=== PATIENT | male | born 1975 | race Caucasian/White ===

== ENCOUNTER 2019-04-21 08:08 | Inpatient (IN) | payer OTHER ==
--- NOTE | 2019-04-21 09:14 | HP ---
CIWA Score Nausea/Vomitin-No Nausea/No Vomiting Muscle Tremors: 3 (patient was here for admission here yesterday so symptoms of withdrawal are less.) Anxiety: 2 Agitation: 3 Paroxysmal Sweats: No Perspiration Orientation: 0-Oriented Tacttile Disturbances: 1-Very Mild Itch/Numbness Auditory Disturbances: 0-None Visual Disturbances: 1-Very Mild Sensitivity (patient was here for admission yesterday but there were no beds. Symptoms of withdrawal are much less now than yesterday) Headache: 3-Moderate CIWA-Ar Total Score: 13 - Admission Criteria OASAS Guidelines: Admission for Medically Managed Detox: Requires at least one of the followin. CIWA greater than 12 2. Seizures within the past 24 hours 3. Delirium tremens within the past 24 hours 4. Hallucinations within the past 24 hours 5. Acute intervention needed for co occurring medical disorder 6. Acute intervention needed for co occurring psychiatric disorder 7. Severe withdrawal that cannot be handled at a lower level of care (continued vomiting, continued diarrhea, abnormal vital signs) requiring intravenous medication and/or fluids Admission ROS [facility] Chief Complaint: Patient wants to be admitted because he is sick and tired of being addicted. He has lost family and friends. "I don't want to keep falling off the wagon." Allergies/Adverse Reactions: Allergies Allergy/AdvReac Type Severity Reaction Status Date / Time No Known Allergies Allergy Verified 04/21/19 08:17 History of Present Illness: 44 year old male with alcohol and cocaine dependence for 20 years. Last detox was in 2007 in [facility] and completed detox and rehab. He is using 3 t packs of beer per day but last drink 2 days ago. He is using $40-80 of cocain per day intranasally. He has never been in a MAT in the past. He has never used heroin or other opioids. He denies use of any benzodiazpines or other oral opioids or other pill. He smokes about 10 ciggs/day since the age of [age] years old. Marijuana he occasionally uses about 1x/month. He has no significant prior medical history. However, his family history is significant for Hypertension, Asthma and diabetes on his father. Mother has diabetes. No prior surgical history . He is currently undomiciled but not in long-term system. He has has some legal issues of cowart larceny in the past but no current legal issues. He graduated high school but did not complete college. He has no PMD. He has no psychiatric history but family history on father's side of bipolar and schizophrenia. - Ebola screening Have you traveled outside of the country in the last 21 days: No Have you had contact with anyone from an Ebola affected area: No Patient History - Patient Medical History Hx Anemia: No Hx Asthma: No Hx Chronic Obstructive Pulmonary Disease (COPD): No Hx Cancer: No Hx Cardiac Disorders: No Hx Congestive Heart Failure: No Hx Hypertension: No Hx Hypercholesterolemia: No Hx Pacemaker: No HX Cerebrovascular Accident: No Hx Seizures: No Hx Dementia: No Hx Diabetes: No Hx Gastrointestinal Disorders: No Hx Liver Disease: No Hx Genitourinary Disorders: No Hx Sexually Transmitted Disorders: No Hx Renal Disease (ESRD): No Hx Thyroid Disease: No - Smoking Cessation Smoking history: Current every day smoker Have you smoked in the past 12 months: Yes Aproximately how many cigarettes per day: 10 Hx Chewing Tobacco Use: No Initiated information on smoking cessation: Yes 'Breaking Loose' booklet given: 04/21/19 - Substance & Tx. History Hx Alcohol Use: Yes (2 six packs per day) Hx Substance Use: Yes (cocaine) Substance Use Type: Alcohol, Cocaine Hx Substance Use Treatment: Yes (detox and rehab long ago) - Substances abused Alcohol Substance route: Oral Frequency: 3-6 times per week Amount used: 2 6pack beer Age of first use: 16 Date of last use: 04/19/19 Cocaine Substance route: Inhalation Frequency: Daily Amount used: $40-80 Age of first use: 18 Date of last use: 04/19/19 Family Disease History - Family Disease History Family Disease History: Diabetes: Father (asthma, schizophrenia, emphysema), Mother, Respiratory: Father, Other: Brother (youngest brother has mental history ), Sister (ADHD on adderall), Son (autistic), Daughter (no issues) Admission Physical Exam S - Vital Signs Vital Signs: Vital Signs - 24 hr 04/21/19 08:18 Temperature 97.2 F L Pulse Rate 66 Respiratory 18 Rate Blood Pressure 113/74 - Physical General Appearance: Yes: Mild Distress HEENTM: Yes: Within Normal Limits, Photophobia, Hearing Decreased, Nasal Congestion Respiratory: Yes: Lungs Clear, Normal Breath Sounds, No Respiratory Distress, No Accessory Muscle Use Neck: Yes: No masses,lesions,Nodules, Supple, Trachea in good position, Other ( some shotty lymph nodes submandivular and pre-cervical) Breast: Yes: Within Normal Limits Cardiology: Yes: Regular Rhythm, Regular Rate Abdominal: Yes: Normal Bowel Sounds, Non Tender, Flat Genitourinary: Yes: Within Normal Limits, Other (some shotty inguinal lymph nodes) Back: Yes: Within Normal Limits Musculoskeletal: Yes: Within Normal Limits, full range of Motion, Gait Steady Extremities: Yes: Within Normal Limits, Normal Capillary Refill, Normal Inspection, Normal Range of Motion, Non-Tender Cleared for Admission S - Detox or Rehab [facility] Level of Care: Medically Managed Detox Regimen/Protocol: Librium Claeared for Rehab Admission: No Screened but not Admitted - Documentation of Visit Screened but not Admitted: No Breathalyzer - Breathalyzer Breathalyzer: 0 (has not drank for 2 days) POC Urine test - Test device test lot number: not applicable Urine Drug Screen - Test Device Lot number: [id number] Expiration date: 01/26/20 - Control Is test valid?: Yes - Results Drug screen NEGATIVE: No Urine drug screen results: [facility]LL-Cocaine Inpatient Rehab Admission - Rehab Decision to Admit Inpatient rehab admission?: No
[2019-04-21] MEDS ORDERED: chlordiazePOXIDE HCL 25 MG CAPSULE PO PRN (09:51)
[2019-04-21] MEDS ORDERED: ONDANSETRON *ODT* 4 MG TABLET SL PRN (11:15)
[2019-04-21] MEDS ORDERED: IBUPROFEN 400 MG TABLET (FP) PO PRN (11:15)
[2019-04-21] MEDS ORDERED: MENTHOL/PHENOL 1 EACH UD MM PRN (11:15)
[2019-04-21] MEDS ORDERED: MAGNESIUM CITRATE 300 ML BOTTLE PO PRN (11:15)
[2019-04-21] MEDS ORDERED: MAGNESIUM HYDROX 2400MG/30ML ORAL SUSPENSION 30 ML CUP PO PRN (11:15)
[2019-04-21] MEDS ORDERED: hydrOXYzine HCL 25 MG TABLET (FP) PO PRN (11:15)
[2019-04-21] MEDS ORDERED: METHOCARBAMOL 500 MG TABLET PO PRN (11:15)
[2019-04-21] MEDS ORDERED: BISMUTH SUBSALICYLATE 524 MG/30 ML UD PO PRN (11:15)
[2019-04-21] MEDS ORDERED: DICYCLOMINE HCL 10 MG CAPSULE PO PRN (11:15)
[2019-04-21] MEDS: chlordiazePOXIDE HCL 25 MG CAPSULE PO SCH ×4 (11:37→22:09)
[2019-04-21 14:47] LABS: EOS % 5.9 % (0-4.5); HEMATOCRIT 41.5 % (35.4-49); LYMPH % 31.6 % (8-40); MCHC 33.6 g/dl (32.0-35.9); MEAN CELL VOLUME 92.2 fl (80-96); MEAN PLT VOLUME 7.7 fl (7.5-11.1); MONO % 10.9 % (3.8-10.2); NEUT % 50.6 % (42.8-82.8); PLATELET COUNT 315 K/MM3 (134-434); RDW 13.9 % (11.9-15.9); WHITE BLOOD COUNT 4.3 K/mm3 (4.0-10.0)
[2019-04-21 14:52] LABS: ALBUMIN 3.6 g/dl (3.4-5.0); BILIRUBIN,TOTAL 0.2 mg/dL (0.2-1); BLOOD UREA NITROGEN 12.3 mg/dL (7-18); CREATININE 0.8 mg/dL (0.55-1.3); POTASSIUM 4.2 mmol/L (3.5-5.1); TOT PROT 7.1 g/dl (6.4-8.2)
[2019-04-21] MEDS: THIAMINE HCL 100 MG TABLET (FP) PO SCH (22:09)
[2019-04-21] MEDS: ACETAMINOPHEN 325 MG TABLET (FP) PO PRN (22:10)
[2019-04-22] MEDS: chlordiazePOXIDE HCL 25 MG CAPSULE PO SCH ×4 (05:51→22:14)
[2019-04-22] MEDS ORDERED: ACETAMINOPHEN 325 MG TABLET (FP) PO PRN (10:00)
[2019-04-22] MEDS: NICOTINE 14 MG/24 HOURS TOPICAL PATCH TD SCH (10:22)
[2019-04-22] MEDS: PRENATAL VITAMINS W/ FOLIC ACID TABLET (FP) PO SCH (10:25)
--- NOTE | 2019-04-22 16:49 | PN ---
S CIWA - CIWA Score Nausea/Vomitin (Stomach Cramping.) Muscle Tremors: 3 Anxiety: 3 Agitation: 2 Paroxysmal Sweats: 3 Orientation: 0-Oriented Tacttile Disturbances: 0-None Auditory Disturbances: 0-None Visual Disturbances: 1-Very Mild Sensitivity Headache: 2-Mild CIWA-Ar Total Score: 16 BHS Progress Note (SOAP) Subjective: Anxious, Tremors, H/A, Sweating, Stomach Cramping. Objective: PATIENT A & O X 3, OBSERVED AMBULATING ON UNIT UNASSISTED. IN NO ACUTE DISTRESS. 04/22/19 16:47 Vital Signs Temperature 97.5 F L 04/22/19 13:24 Pulse Rate 76 04/22/19 13:24 Respiratory Rate 18 04/22/19 13:24 Blood Pressure 101/84 04/22/19 13:24 O2 Sat by Pulse Oximetry (%) Laboratory Tests 04/21/19 04/21/19 04/21/19 10:20 10:20 10:20 WBC 4.3 RBC 4.50 Hgb 14.0 Hct 41.5 MCV 92.2 MCH 31.0 MCHC 33.6 RDW 13.9 Plt Count 315 MPV 7.7 Absolute Neuts (auto) 2.2 Neutrophils % 50.6 Lymphocytes % 31.6 Monocytes % 10.9 H Eosinophils % 5.9 H Basophils % 1.0 Nucleated RBC % 0 Sodium 143 Potassium 4.2 Chloride 110 H Carbon Dioxide 29 Anion Gap 4 L BUN 12.3 Creatinine 0.8 Est GFR (CKD-EPI)AfAm 124.16 Est GFR (CKD-EPI)NonAf 107.13 Random Glucose 72 L Calcium 9.0 Total Bilirubin 0.2 AST 36 ALT 41 Alkaline Phosphatase 92 Total Protein 7.1 Albumin 3.6 RPR Titer Nonreactive 04/21/19 10:20 WBC RBC Hgb Hct MCV MCH MCHC RDW Plt Count MPV Absolute Neuts (auto) Neutrophils % Lymphocytes % Monocytes % Eosinophils % Basophils % Nucleated RBC % Sodium Potassium Chloride Carbon Dioxide Anion Gap BUN Creatinine Est GFR (CKD-EPI)AfAm Est GFR (CKD-EPI)NonAf Random Glucose Calcium Total Bilirubin AST ALT Alkaline Phosphatase Total Protein Albumin RPR Titer Cancelled LABS NOTED. RESULTS OF QFT /TB TEST PENDING. 04/22/19 16:49 Assessment: 04/22/19 16:49 WITHDRAWAL SYMPTOMS. Plan: CONTINUE DETOX.
[2019-04-22] MEDS: IBUPROFEN 600 MG TABLET (FP) PO PRN (18:13)
[2019-04-22] MEDS: BENZOCAINE 20 % GEL TUBE MM PRN (18:14)
[2019-04-22] MEDS: MAG HYDROX/AL HYDROX/SIMETH 30 ML UNIT-DOSE CUP PO PRN (19:33)
[2019-04-22] MEDS: THIAMINE HCL 100 MG TABLET (FP) PO SCH (22:15)
[2019-04-22] MEDS: MELATONIN 5 MG TABLETS PO PRN (22:16)
[2019-04-23] MEDS ORDERED: chlordiazePOXIDE HCL 10 MG CAPSULE PO PRN
[2019-04-23] MEDS: chlordiazePOXIDE HCL 10 MG CAPSULE PO SCH ×4 (05:20→22:09)
[2019-04-23] MEDS: PRENATAL VITAMINS W/ FOLIC ACID TABLET (FP) PO SCH (10:10)
[2019-04-23] MEDS: NICOTINE 14 MG/24 HOURS TOPICAL PATCH TD SCH (10:12)
[2019-04-23] MEDS: NICOTINE POLACRILEX 2 MG GUM BUC PRN (10:20)
[2019-04-23] MEDS ORDERED: LIDOCAINE VISCOUS 2% ORAL/TOP 20 ML UNIT-DOSE CUP MM PRN (12:01)
[2019-04-23] MEDS: MAG HYDROX/AL HYDROX/SIMETH 30 ML UNIT-DOSE CUP PO PRN (13:39)
[2019-04-23] MEDS: BENZOCAINE 20 % GEL TUBE MM PRN ×2 (14:18→22:06)
--- NOTE | 2019-04-23 14:29 | PN ---
S CIWA - CIWA Score Nausea/Vomitin-No Nausea/No Vomiting Muscle Tremors: 2 Anxiety: 3 Agitation: 2 Paroxysmal Sweats: 3 Orientation: 0-Oriented Tacttile Disturbances: 1-Very Mild Itch/Numbness Auditory Disturbances: 0-None Visual Disturbances: 0-None Headache: 2-Mild CIWA-Ar Total Score: 13 S Progress Note (SOAP) Subjective: Chills, Anxious, Sweating, H/A. Objective: PATIENT A & O X 3, OBSERVED AMBULATING ON UNIT UNASSISTED. IN NO ACUTE DISTRESS. 04/23/19 14:27 Vital Signs Temperature 98.2 F 04/23/19 13:45 Pulse Rate 67 04/23/19 13:45 Respiratory Rate 18 04/23/19 13:45 Blood Pressure 108/71 04/23/19 13:45 O2 Sat by Pulse Oximetry (%) Laboratory Tests 04/21/19 04/21/19 04/21/19 10:20 10:20 10:20 WBC 4.3 RBC 4.50 Hgb 14.0 Hct 41.5 MCV 92.2 MCH 31.0 MCHC 33.6 RDW 13.9 Plt Count 315 MPV 7.7 Absolute Neuts (auto) 2.2 Neutrophils % 50.6 Lymphocytes % 31.6 Monocytes % 10.9 H Eosinophils % 5.9 H Basophils % 1.0 Nucleated RBC % 0 Sodium 143 Potassium 4.2 Chloride 110 H Carbon Dioxide 29 Anion Gap 4 L BUN 12.3 Creatinine 0.8 Est GFR (CKD-EPI)AfAm 124.16 Est GFR (CKD-EPI)NonAf 107.13 Random Glucose 72 L Calcium 9.0 Total Bilirubin 0.2 AST 36 ALT 41 Alkaline Phosphatase 92 Total Protein 7.1 Albumin 3.6 RPR Titer Nonreactive 04/21/19 10:20 WBC RBC Hgb Hct MCV MCH MCHC RDW Plt Count MPV Absolute Neuts (auto) Neutrophils % Lymphocytes % Monocytes % Eosinophils % Basophils % Nucleated RBC % Sodium Potassium Chloride Carbon Dioxide Anion Gap BUN Creatinine Est GFR (CKD-EPI)AfAm Est GFR (CKD-EPI)NonAf Random Glucose Calcium Total Bilirubin AST ALT Alkaline Phosphatase Total Protein Albumin RPR Titer Cancelled LABS NOTED. RESULTS OF QFT /TB TEST PENDING. 04/23/19 14:28 Assessment: 04/23/19 14:28 WITHDRAWAL SYMPTOMS. Plan: CONTINUE DETOX. INCREASE DAILY PO WATER INTAKE.
[2019-04-23] MEDS: IBUPROFEN 600 MG TABLET (FP) PO PRN (18:08)
[2019-04-23] MEDS: THIAMINE HCL 100 MG TABLET (FP) PO SCH (22:06)
[2019-04-23] MEDS: MELATONIN 5 MG TABLETS PO PRN (22:08)
[2019-04-24] MEDS: chlordiazePOXIDE HCL 10 MG CAPSULE PO SCH ×2 (05:13→18:07)
[2019-04-24] MEDS: PRENATAL VITAMINS W/ FOLIC ACID TABLET (FP) PO SCH (10:07)
[2019-04-24] MEDS: NICOTINE 14 MG/24 HOURS TOPICAL PATCH TD SCH (10:07)
[2019-04-24] MEDS: NICOTINE POLACRILEX 2 MG GUM BUC PRN ×2 (10:08→16:29)
--- NOTE | 2019-04-24 12:33 | PN ---
S CIWA - CIWA Score Nausea/Vomitin-Mild Nausea/No Vomiting Muscle Tremors: 2 Anxiety: 2 Agitation: 2 Paroxysmal Sweats: 1-Minimal Palms Moist Orientation: 0-Oriented Tacttile Disturbances: 0-None Auditory Disturbances: 0-None Visual Disturbances: 0-None Headache: 0-None Present CIWA-Ar Total Score: 8 BHS Progress Note (SOAP) Subjective: 44 years old male admitted on 04/21/19 for alcohol withdrawal sx doing well with librium detox regimen less tremor feeling better sleep through out the night Objective: 04/24/19 12:33 Vital Signs Temperature 97.3 F L 04/24/19 09:24 Pulse Rate 61 04/24/19 09:24 Respiratory Rate 18 04/24/19 09:24 Blood Pressure 119/85 04/24/19 09:24 O2 Sat by Pulse Oximetry (%) Laboratory Last Values WBC 4.3 K/mm3 (4.0-10.0) 04/21/19 10:20 RBC 4.50 M/mm3 (4.00-5.60) 04/21/19 10:20 Hgb 14.0 GM/dL (11.7-16.9) 04/21/19 10:20 Hct 41.5 % (35.4-49) 04/21/19 10:20 MCV 92.2 fl (80-96) 04/21/19 10:20 MCH 31.0 pg (25.7-33.7) 04/21/19 10:20 MCHC 33.6 g/dl (32.0-35.9) 04/21/19 10:20 RDW 13.9 % (11.9-15.9) 04/21/19 10:20 Plt Count 315 K/MM3 (134-434) 04/21/19 10:20 MPV 7.7 fl (7.5-11.1) 04/21/19 10:20 Absolute Neuts (auto) 2.2 K/mm3 (1.5-8.0) 04/21/19 10:20 Neutrophils % 50.6 % (42.8-82.8) 04/21/19 10:20 Lymphocytes % 31.6 % (8-40) 04/21/19 10:20 Monocytes % 10.9 % (3.8-10.2) H 04/21/19 10:20 Eosinophils % 5.9 % (0-4.5) H 04/21/19 10:20 Basophils % 1.0 % (0-2.0) 04/21/19 10:20 Nucleated RBC % 0 % (0-0) 04/21/19 10:20 Sodium 143 mmol/L (136-145) 04/21/19 10:20 Potassium 4.2 mmol/L (3.5-5.1) 04/21/19 10:20 Chloride 110 mmol/L (98-107) H 04/21/19 10:20 Carbon Dioxide 29 mmol/L (21-32) 04/21/19 10:20 Anion Gap 4 MMOL/L (8-16) L 04/21/19 10:20 BUN 12.3 mg/dL (7-18) 04/21/19 10:20 Creatinine 0.8 mg/dL (0.55-1.3) 04/21/19 10:20 Est GFR (CKD-EPI)AfAm 124.16 04/21/19 10:20 Est GFR (CKD-EPI)NonAf 107.13 04/21/19 10:20 Random Glucose 72 mg/dL (74-106) L 04/21/19 10:20 Calcium 9.0 mg/dL (8.5-10.1) 04/21/19 10:20 Total Bilirubin 0.2 mg/dL (0.2-1) 04/21/19 10:20 AST 36 U/L (15-37) 04/21/19 10:20 ALT 41 U/L (13-61) 04/21/19 10:20 Alkaline Phosphatase 92 U/L (45-117) 04/21/19 10:20 Total Protein 7.1 g/dl (6.4-8.2) 04/21/19 10:20 Albumin 3.6 g/dl (3.4-5.0) 04/21/19 10:20 RPR Titer Nonreactive (NONREACTIVE) 04/21/19 10:20 TB (QFT) Incubation (.) 04/21/19 10:20 TB Test (QFT) Nil 0.03 IU/mL (.) 04/21/19 10:20 TB Test (QFT) Mitogen >10.00 IU/mL (.) 04/21/19 10:20 TB Test (QFT) Antigen 0.04 IU/mL (.) 04/21/19 10:20 TB Test (QFT) Negative (Negative) 04/21/19 10:20 TB Positive Criteria (.) 04/21/19 10:20 lab noted Assessment: 04/24/19 12:35 alcohol withdrawal sx Plan: continue alcohol detox
[2019-04-24] MEDS: IBUPROFEN 600 MG TABLET (FP) PO PRN ×2 (13:59→22:04)
[2019-04-24] MEDS: ACETAMINOPHEN 325 MG TABLET (FP) PO PRN (18:07)
[2019-04-24] MEDS: MAG HYDROX/AL HYDROX/SIMETH 30 ML UNIT-DOSE CUP PO PRN (20:36)
[2019-04-24] MEDS: THIAMINE HCL 100 MG TABLET (FP) PO SCH (22:04)
[2019-04-24] MEDS: MELATONIN 5 MG TABLETS PO PRN (22:05)
[2019-04-25] MEDS ORDERED: chlordiazePOXIDE HCL 10 MG CAPSULE PO ONE (05:00)
[2019-04-25] MEDS: NICOTINE 14 MG/24 HOURS TOPICAL PATCH TD SCH (10:22)
[2019-04-25] MEDS: NICOTINE POLACRILEX 2 MG GUM BUC PRN (10:22)
[2019-04-25] MEDS: PRENATAL VITAMINS W/ FOLIC ACID TABLET (FP) PO SCH (10:22)
[2019-04-25] MEDS: IBUPROFEN 600 MG TABLET (FP) PO PRN (10:23)
--- NOTE | 2019-04-25 12:04 | DS ---
[facility] Detox Discharge Summary Admission Date: 04/21/19 Discharge Date: 04/25/19 - History Present History: Alcohol Dependence Additional Comments: 44 years old male admitted on 04/21/19 for alcohol withdrawal sx no complication through out the detox stay doing well with librium detox protocol alert oriented x 3 discuss aftercare to [facility] - Physical Exam Results Vital Signs: Vital Signs Temperature 97.8 F 04/25/19 09:10 Pulse Rate 75 04/25/19 09:10 Respiratory Rate 18 04/25/19 09:10 Blood Pressure 124/80 04/25/19 09:10 O2 Sat by Pulse Oximetry (%) Pertinent Admission Physical Exam Findings: alcohol withdrawal sx Laboratory Last Values WBC 4.3 K/mm3 (4.0-10.0) 04/21/19 10:20 RBC 4.50 M/mm3 (4.00-5.60) 04/21/19 10:20 Hgb 14.0 GM/dL (11.7-16.9) 04/21/19 10:20 Hct 41.5 % (35.4-49) 04/21/19 10:20 MCV 92.2 fl (80-96) 04/21/19 10:20 MCH 31.0 pg (25.7-33.7) 04/21/19 10:20 MCHC 33.6 g/dl (32.0-35.9) 04/21/19 10:20 RDW 13.9 % (11.9-15.9) 04/21/19 10:20 Plt Count 315 K/MM3 (134-434) 04/21/19 10:20 MPV 7.7 fl (7.5-11.1) 04/21/19 10:20 Absolute Neuts (auto) 2.2 K/mm3 (1.5-8.0) 04/21/19 10:20 Neutrophils % 50.6 % (42.8-82.8) 04/21/19 10:20 Lymphocytes % 31.6 % (8-40) 04/21/19 10:20 Monocytes % 10.9 % (3.8-10.2) H 04/21/19 10:20 Eosinophils % 5.9 % (0-4.5) H 04/21/19 10:20 Basophils % 1.0 % (0-2.0) 04/21/19 10:20 Nucleated RBC % 0 % (0-0) 04/21/19 10:20 Sodium 143 mmol/L (136-145) 04/21/19 10:20 Potassium 4.2 mmol/L (3.5-5.1) 04/21/19 10:20 Chloride 110 mmol/L (98-107) H 04/21/19 10:20 Carbon Dioxide 29 mmol/L (21-32) 04/21/19 10:20 Anion Gap 4 MMOL/L (8-16) L 04/21/19 10:20 BUN 12.3 mg/dL (7-18) 04/21/19 10:20 Creatinine 0.8 mg/dL (0.55-1.3) 04/21/19 10:20 Est GFR (CKD-EPI)AfAm 124.16 04/21/19 10:20 Est GFR (CKD-EPI)NonAf 107.13 04/21/19 10:20 Random Glucose 72 mg/dL (74-106) L 04/21/19 10:20 Calcium 9.0 mg/dL (8.5-10.1) 04/21/19 10:20 Total Bilirubin 0.2 mg/dL (0.2-1) 04/21/19 10:20 AST 36 U/L (15-37) 04/21/19 10:20 ALT 41 U/L (13-61) 04/21/19 10:20 Alkaline Phosphatase 92 U/L (45-117) 04/21/19 10:20 Total Protein 7.1 g/dl (6.4-8.2) 04/21/19 10:20 Albumin 3.6 g/dl (3.4-5.0) 04/21/19 10:20 RPR Titer Nonreactive (NONREACTIVE) 04/21/19 10:20 TB (QFT) Incubation (.) 04/21/19 10:20 TB Test (QFT) Nil 0.03 IU/mL (.) 04/21/19 10:20 TB Test (QFT) Mitogen >10.00 IU/mL (.) 04/21/19 10:20 TB Test (QFT) Antigen 0.04 IU/mL (.) 04/21/19 10:20 TB Test (QFT) Negative (Negative) 04/21/19 10:20 TB Positive Criteria (.) 04/21/19 10:20 lab noted - Treatment Hospital Course: Detox Protocol Followed, Detoxed Safely, Responded well, Discharged Condition Good, Rehab Referral Accepted Patient has Accepted a Rehab Referral to: [facility] - Medication Discharge Medications: Ambulatory Orders NK [No Known Home Medication] 04/21/19 - Diagnosis (1) Alcohol dependence with uncomplicated withdrawal Current Visit: Yes Status: Acute - AMA Did Patient Leave Against Medical Advice: No
[2019-04-25 13:22] VITALS: BP 131/85; PULSE 70; TEMP 97.5
== END 2019-04-25 13:45 | disposition other institution (70) | DRG 774 ==
LOC: YASAS 08:08 → Y3N 09:35
PROVIDERS: ADMIT Surgery; ATTEND Surgery
PROC: HZ2ZZZZ Detoxification Services for Substance Abuse Treatment (ICD-10-PCS; principal; 2019-04-21)
DX: F10.230 Alcohol dependence with withdrawal, uncomplicated (principal); F14.20 Cocaine dependence, uncomplicated; F17.210 Nicotine dependence, cigarettes, uncomplicated; Z59.0 Homelessness
CPT/HCPCS: 36415; 80053; 85025; 86480; 86593

== ENCOUNTER 2019-04-25 13:56 | Inpatient (IN) | payer OTHER ==
--- NOTE | 2019-04-25 12:08 | HP ---
[facility] Rehab Assess/Revision - Admission History Admitted to Rehab from: [facility] Date of Admission to Rehab: 04/24/19 - Findings Detox History & Physical reviewed: Yes Concur with findings: Yes Comments/Additional Findings: tranferred from detox to rehab admission as per protocol Inpatient Rehab Admission - Rehab Decision to Admit Inpatient rehab admission?: Yes - Initial Determination Are CD services needed?: Yes Free of communicable disease: Yes Not in need of hospitalization: Yes - Rehab Admission Criteria Previous failed treatment: Yes Poor recovery environment: Yes Comorbidities: Yes Lacks judgement: No Patient is meeting Inpatient Rehab admission criteria:: Yes
[~2019-04-25 13:56] MED LIST: LOPERAMIDE HCL 2 MG CAPSULE PO PRN; MAGNESIUM CITRATE 300 ML BOTTLE PO PRN; MAGNESIUM HYDROX 2400MG/30ML ORAL SUSPENSION 30 ML CUP PO PRN; MENTHOL/PHENOL 1 EACH UD MM PRN; P-EPHED 60MG/TRIPROLIDI 2.5MG TABLET PO PRN; guaiFENesin 200 MG/10 ML 10 ML UNIT-DOSE CUPS PO PRN
[2019-04-25] MEDS: IBUPROFEN 400 MG TABLET (FP) PO PRN (17:57)
[2019-04-25] MEDS: THIAMINE HCL 100 MG TABLET (FP) PO SCH (21:40)
[2019-04-25] MEDS: ACETAMINOPHEN 325 MG TABLET (FP) PO PRN (21:40)
[2019-04-25] MEDS: MELATONIN 5 MG TABLETS PO PRN (21:40)
[2019-04-25] MEDS: MAG HYDROX/AL HYDROX/SIMETH 30 ML UNIT-DOSE CUP PO PRN (22:18)
[2019-04-26] MEDS: IBUPROFEN 400 MG TABLET (FP) PO PRN ×2 (06:26→20:17)
[2019-04-26] MEDS: PANTOPRAZOLE 40 MG TABLET (FP) PO SCH (11:12)
[2019-04-26] MEDS: PRENATAL VITAMINS W/ FOLIC ACID TABLET (FP) PO SCH (11:12)
[2019-04-26] MEDS: ACETAMINOPHEN 325 MG TABLET (FP) PO PRN ×2 (11:14→17:25)
--- NOTE | 2019-04-26 12:47 | PN ---
[facility] Progress Note (SOAP) Subjective: C/O TOOTH ACHE ON/OFF FOR OVER A YEAR. REPORTS NO DENTAL CARE BECAUSE "NO INSURANCE". Objective: 04/26/19 12:43 Vital Signs - 24 hr 04/26/19 04/26/19 00:30 06:56 Temperature 97.8 F Pulse Rate 57 L Respiratory 20 18 Rate Blood Pressure 117/70 ORAL EXAM: TOOTH DECAY/EXPOSED ENAMELS, REDNESS AND SWELLING LEFT GUM AREA Assessment: 04/26/19 12:48 A:GINGIVITIS TOOTH DECAY Plan: PLAN:AMOXICILLIN 500 MG PO TID X 10 DAYS VISCOUS LIDOCAINE 2% MM 20 ML TID TO SWISH AND SPIT FOLLOW UP WITH DENTAL CARE FOR TOOTH EXTRACTION OF DECAYED TEETH.
[2019-04-26] MEDS: AMOXICILLIN 500 MG CAPSULE (FP) PO SCH ×2 (14:07→21:36)
[2019-04-26] MEDS: MAG HYDROX/AL HYDROX/SIMETH 30 ML UNIT-DOSE CUP PO PRN (17:24)
[2019-04-26] MEDS: LIDOCAINE VISCOUS 2% ORAL/TOP 20 ML UNIT-DOSE CUP MM PRN ×2 (17:26→21:37)
[2019-04-26] MEDS: THIAMINE HCL 100 MG TABLET (FP) PO SCH (21:36)
[2019-04-26] MEDS: MELATONIN 5 MG TABLETS PO PRN (21:38)
[2019-04-27] MEDS: AMOXICILLIN 500 MG CAPSULE (FP) PO SCH (06:24)
[2019-04-27 06:46] VITALS: BP 108/74; PULSE 60; TEMP 97.6
[2019-04-27] MEDS: IBUPROFEN 400 MG TABLET (FP) PO PRN (10:18)
[2019-04-27] MEDS: PRENATAL VITAMINS W/ FOLIC ACID TABLET (FP) PO SCH (10:18)
[2019-04-27] MEDS: PANTOPRAZOLE 40 MG TABLET (FP) PO SCH (10:18)
[2019-04-27] MEDS: LIDOCAINE VISCOUS 2% ORAL/TOP 20 ML UNIT-DOSE CUP MM PRN (11:20)
[2019-04-27] MEDS ORDERED: IBUPROFEN 600 MG TABLET (FP) PO PRN (11:29)
--- NOTE | 2019-04-27 13:26 | PN ---
S Progress Note (SOAP) Subjective: pt is a 44 y/o male admitted to rehab after completing detox on 04/25/19 and requesting to sign out today 04/27/19. Pt wants to go and follow up with his dentist for severe toothache. Rx for Amoxicillin 500 mg po tid # 30 sent electronically to [place] [facility] for order picker/assembler. Pt denies s/h/i. Objective: 04/27/19 13:30 Alert o x 3 Ambulating with steady gait. Vital Signs - 24 hr 04/27/19 04/27/19 04/27/19 00:30 03:30 06:45 Temperature 97.6 F Pulse Rate 60 Respiratory 18 18 17 Rate Blood Pressure 108/74 Home Medications Medication Instructions Recorded Amoxicillin - [Amoxicillin 500mg 500 mg PO TID #30 capsule 04/27/19 Capsule -] Assessment: 04/27/19 13:30 Nad Plan: Pt signed out AMA Follow up with cd aftercare at [facility] as recommended. Follow up with primary care within 1-2 weeks after discharge.
== END 2019-04-27 13:30 | disposition left against medical advice (07) | DRG 770 ==
LOC: YASAS 13:56 → Y5N 13:57
PROVIDERS: ADMIT Neuromusculoskeletal Medicine & OMM; ATTEND Neuromusculoskeletal Medicine & OMM
PROC: HZ42ZZZ Group Counseling for Substance Abuse Treatment, Cognitive-Behavioral (ICD-10-PCS; principal; 2019-04-25)
DX: F10.20 Alcohol dependence, uncomplicated (principal); F17.210 Nicotine dependence, cigarettes, uncomplicated; F14.20 Cocaine dependence, uncomplicated; K05.00 Acute gingivitis, plaque induced; K04.7 Periapical abscess without sinus; K02.9 Dental caries, unspecified; Z59.0 Homelessness